=== PATIENT | female | born 1965 | race Two or more races ===

== ENCOUNTER 2017-04-12 08:11 | Emergency (ER) | payer BC ==
--- NOTE | 2017-04-12 09:10 | RAD ---
INDICATION: LEFT side pleuritic chest pain. COMPARISON: No relevant prior exams available on the [facility] for comparison. TECHNIQUE: Dual energy PA and routine lateral views of the chest were obtained. REPORT: Elevated lung volumes and both diffuse mild prominence of the interstitial markings and patchy rarefaction of the mid to upper lung zone interstitial markings. No focal pulmonary lesion, compelling alveolar consolidation, pleural effusion, pneumothorax. The heart, pulmonary vasculature, and mediastinal contours are unremarkable. No visible rib or other thoracic fracture. IMPRESSION: Stigmata of obstructive lung disease. No acute pulmonary or cardiac process evident.
[2017-04-12 09:12] LABS: ABS Basophils 0 10^3/ul (0-0.2); ABS Eosinophils 0.1 10^3/ul (0-0.6); ABS Monocytes 0.4 10^3/ul (0-0.8); ABS Neutrophils 2.1 10^3/ul (1.5-7.7); ABS Nucleated RBC 0 10^3/ul; Eosinophil % 2.3 % (0-6); Hematocrit 41 % (35-47); Hemoglobin 14.3 g/dl (12.0-16.0); Lymphocyte % 42.9 % (25-47); Mean Corpuscular HGB Conc 34 g/dl (31-36); Mean Corpuscular Hemoglobin 31 pg (27-31); Mean Corpuscular Volume 89 fL (80-97); Mean Platelet Volume 8 um3 (7.4-10.4); Nucleated Red Blood Cells % 0; Platelet Count 208 10^3/ul (150-450); Red Blood Count 4.68 10^6/ul (4.0-5.4); Red Cell Distribution Width 12 % (10.5-15); White Blood Count 4.6 10^3/ul (3.5-10.8)
[2017-04-12 09:46] VITALS: BP 108/61
--- NOTE | 2017-05-02 18:37 | ED ---
Zee Valdez Thomas, scribed for Les Bass MD on 04/12/17 at 0933 . HPI Chest Pain - HPI Summary HPI Summary: The patient is a 51 year old female presenting to the ED complaining of sharp localized left shoulder pain. Patient additionally complains of diffuse left arm pain and hot flashes for the past week (not occurred since menopause 2 years prior). Pain is aggravated by movement of her shoulder. Patient denies cough, neck pain, nausea, diaphoresis, or rigid neck. Patient denies history of blood clots, PNA, and asthma. Patient does not smoke and has no family history of blood clots. - History of Current Complaint Chief Complaint: EDChestPainROMI Hx Obtained From: Patient Onset/Duration: Still Present Timing: Constant Current Severity: Mild Pain Intensity: 3 Pain Scale Used: 0-10 Numeric Chest Pain Location: Discrete at: - L shoulder pain Chest Pain Radiates: No Aggravating Factor(s): Other: - Exertion Alleviating Factor(s): Nothing Associated Signs and Symptoms: Negative: Other: - cough, neck pain, rigid neck, nausea, diaphoresis - Allergy/Home Medications Allergies/Adverse Reactions: Allergies Allergy/AdvReac Type Severity Reaction Status Date / Time No Known Allergies Allergy Verified 04/12/17 08:31 Home Medications: Home Medications Escitalopram (NF) [Lexapro 10 mg (NF)] 10 mg PO DAILY 04/12/17 [History Confirmed 04/12/17] PMH/Surg Hx/FS Hx/Imm Hx Previously Healthy: Yes Endocrine/Hematology History: Denies: Hx Diabetes Musculoskeletal History: Denies: Hx Rheumatoid Arthritis, Hx Osteoporosis Infectious Disease History: No Infectious Disease History: Denies: Traveled Outside the [place] in Last 30 Days - Family History Known Family History: Negative: Renal Disease - Social History Alcohol Use: None Substance Use Type: Reports: None Smoking Status (MU): Never Smoked Tobacco Review of Systems Negative: Skin Diaphoresis Negative: Cough Negative: Nausea Positive: Other - L shoulder pain; NEGATIVE: neck pain, rigid neck All Other Systems Reviewed And Are Negative: Yes Physical Exam - Summary Physical Exam Summary: Appearance: Well-appearing, Well-nourished Skin: Warm, Dry, No rash Eyes: Normal, PERRL, EOMI, sclera anicteric ENT: Normal Neck: Supple, nontender Respiratory: Clear to auscultation Cardiovascular: S1, S2, no murmur, no rub, no gallop Abdomen: Soft, nontender, no organomegaly Bowel sounds: Present Musculoskeletal: She has some pain with mortion of her left shoulder. Her left shoulder has full ROM. Strength/ROM Intact, no edema, pulses symmetrical Neurological: Normal, A&Ox3, cranial nerves II-XII WNL, follows commands, gait not tested, sensation intact to pin and light touch Psychiatric: affect normal, behavior appropriate, dressed appropriately, judgment intact Triage Information Reviewed: Yes Vital Signs On Initial Exam: Initial Vitals Temp Pulse Resp BP Pulse Ox 96.9 F 65 17 103/67 95 04/12/17 08:16 04/12/17 08:16 04/12/17 08:16 04/12/17 08:16 04/12/17 08:16 Vital Signs Reviewed: Yes - [place] Coma Scale Coma Scale Total: 15 Diagnostics - Vital Signs Vital Signs Temp Pulse Resp BP Pulse Ox 04/12/17 09:00 60 14 96 04/12/17 08:30 65 14 117/75 96 04/12/17 08:28 62 15 103/67 96 04/12/17 08:20 60 97 04/12/17 08:16 96.9 F 65 17 103/67 95 - Laboratory Lab Results: Lab Results 04/12/17 04/12/17 04/12/17 Range/Units 08:41 08:41 08:41 WBC 4.6 (3.5-10.8) 10^3/ul RBC 4.68 (4.0-5.4) 10^6/ul Hgb 14.3 (12.0-16.0) g/dl Hct 41 (35-47) % MCV 89 (80-97) fL MCH 31 (27-31) pg MCHC 34 (31-36) g/dl RDW 12 (10.5-15) % Plt Count 208 (150-450) 10^3/ul MPV 8 (7.4-10.4) um3 Neut % (Auto) 45.9 (38-83) % Lymph % (Auto) 42.9 (25-47) % Blanco % (Auto) 8.3 (1-9) % Eos % (Auto) 2.3 (0-6) % Baso % (Auto) 0.6 (0-2) % Absolute Neuts (auto) 2.1 (1.5-7.7) 10^3/ul Absolute Lymphs (auto) 2.0 (1.0-4.8) 10^3/ul Absolute Monos (auto) 0.4 (0-0.8) 10^3/ul Absolute Eos (auto) 0.1 (0-0.6) 10^3/ul Absolute Basos (auto) 0 (0-0.2) 10^3/ul Absolute Nucleated RBC 0 10^3/ul Nucleated RBC % 0 D-Dimer, Quantitative < 200 (Less Than 230) ng/mL Sodium 138 (133-145) mmol/L Potassium 3.9 (3.5-5.0) mmol/L Chloride 106 (101-111) mmol/L Carbon Dioxide 27 (22-32) mmol/L Anion Gap 5 (2-11) mmol/L BUN 25 H (6-24) mg/dL Creatinine 0.85 (0.51-0.95) mg/dL Est GFR ( Amer) 90.0 (>60) Est GFR (Non-Af Amer) 70.0 (>60) BUN/Creatinine Ratio 29.4 H (8-20) Glucose 74 (70-100) mg/dL Calcium 9.3 (8.6-10.3) mg/dL Total Bilirubin 0.60 (0.2-1.0) mg/dL AST 19 (13-39) U/L ALT 14 (7-52) U/L Alkaline Phosphatase 53 (34-104) U/L Total Protein 6.9 (6.4-8.9) g/dL Albumin 4.0 (3.2-5.2) g/dL Globulin 2.9 (2-4) g/dL Albumin/Globulin Ratio 1.4 (1-3) Result Diagrams: 04/12/17 08:41 04/12/17 08:41 Lab Statement: Any lab studies that have been ordered have been reviewed, and results considered in the medical decision making process. - Radiology CXR Xray Interpretation: No Acute Changes - Stigmata of obstructive lung disease. No acute pulmonary or cardiac process evident. Radiology Interpretation Completed By: Radiologist - EKG 08:17 Cardiac Rate: Bradycardia EKG Rhythm: Sinus Bradycardia - at 57 BPM EKG Interpretation: Normal EKG. Chest Pain Course/Dx - Course Assessment/Plan: The patient presents with left shoulder pain and with concerns that she is suffering a heart attack. She has no chest pain, diahporesis, or nausea. EKG and CXR were negative for acute disease. Bloodwork was obtained. She will be discharged. - Diagnoses Provider Diagnoses: Rotator cuff disease Discharge - Discharge Plan Condition: Good Disposition: HOME Patient Education Materials: Tendinitis (ED) Referrals: Ayanna Marte MD [Primary Care Provider] - Additional Instructions: chest xray shows bilateral upper lung rarefaction consistent with copd, would recommend follow up PFTS, testing for alpha one antitrypsin disease The documentation as recorded by the Zee callahan Thomas accurately reflects the service I personally performed and the decisions made by me, Les Bass MD.
== END 2017-04-12 09:48 | disposition home or self-care (01) ==
LOC: ED 08:11
DX: M75.92 Shoulder lesion, unspecified, left shoulder (principal)
CPT/HCPCS: 36415; 71020; 80053; 85025; 85379; 93005; 99282